=== PATIENT | male | born 1945 | race Two or more races ===

== ENCOUNTER 2018-01-28 02:47 | Emergency (ER) | payer MEDICARE, MEDICAID ==
[~2018-01-28] VITALS: Ht 177.8 cm; Wt 63.5 kg
[~2018-01-28 02:47] MED LIST: ASPIR-LOW81 MG PO; LEXAPRO10 MG PO; PAROXETINE HCL20 MG PO
[2018-01-28 03:00] VITALS: BP 94/56
[2018-01-28] MEDS ORDERED: Bacitracin Oint UD TOPIC ONE (03:45)
[2018-01-28] MEDS ORDERED: Tetanus/Diptheria/Pertussis Vaccine 0.5ml Syr IM ONE (03:45)
[2018-01-28] MEDS ORDERED: KEFLEX500 MG ORAL (03:52)
--- NOTE | 2018-01-28 03:52 | Emergency Room Report ---
History of Present Illness General Chief Complaint: Laceration Source: Patient Present Illness HPI Is a 72-year-old male who is right-hand dominant. He presents with a laceration to his left arm/elbow area. He fell at home while getting up to go to the bathroom. His nightlight was broken. He hit a shelf and sustained a laceration/avulsion to the left elbow area. No loss of consciousness. Bleeding controlled. No other complaint. Denies any pain. Allergies: Coded Allergies: No Known Allergies (Unverified , 12/28/12) Patient History Past Medical History: see triage record, old chart reviewed Past Surgical History: other Pertinent Family History: none Social History: Denies: smoking Immunizations: other Reviewed Nursing Documentation: PMH: Agreed, PSxH: Agreed Nursing Documentation-PMH Past Medical History: No History, Except For Hx Gastrointestinal Problems: Yes - PROSTATE Hx Neurological Problems: No Review of Systems Eye: Denies: eye pain, blurred vision ENT: Denies: ear pain, nose congestion, throat swelling Respiratory: Denies: cough, shortness of breath Cardiovascular: Denies: chest pain, palpitations Gastrointestinal: Denies: abdominal pain, diarrhea, nausea, vomiting Musculoskeletal: Denies: back pain, joint pain Skin: Denies: rash Neurological: Denies: headache, numbness Endocrine: Denies: increased thirst, increased urine Hematologic/Lymphatic: Denies: easy bruising All Other Systems: negative except mentioned in HPI Physical Exam Vital Signs Date Time Temp Pulse Resp B/P (MAP) Pulse Ox O2 Delivery O2 Flow Rate FiO2 01/28/18 02:56 97.1 54 16 94/56 97 Room Air 97.2 vitals normal Sp02 EP Interpretation: reviewed, normal General Appearance: well appearing, no apparent distress, alert Head: normocephalic, atraumatic Eyes: bilateral eye PERRL, bilateral eye EOMI ENT: hearing grossly normal, normal pharynx Neck: full range of motion, supple, no meningismus Respiratory: chest non-tender, lungs clear, normal breath sounds Cardiovascular #1: regular rate, rhythm, no murmur Gastrointestinal: normal bowel sounds, non tender, no mass, no organomegaly, no bruit, non-distended Musculoskeletal: back normal, gait/station normal, normal range of motion, other - left elbow area: 6cm stellate, irregular, stellate lac to left elbow area. no fb, no tendon lac. FROM. NVI Neurologic: alert, oriented x3 Psychiatric: mood/affect normal Skin: warm/dry Procedures Laceration/Wound Repair Laceration/Wound Repair : Consent: Verbal Wound Location: upper extremity Wound's Depth, Shape: irregular, flap, stellate, contused tissue Wound Length (cm): 6 Wound Explored: clean Irrigated w/ Saline (ccs): 1000 Anesthesia: 1% Lidocaine Volume Anesthetic (ccs): 5 Wound Debrided: minimal Wound Repaired With: sutures Suture Size/Type: 4:0, proline Number of Sutures: 14 Patient Tolerated: Well Complications: None Medical Decision Making Diagnostic Impression: Primary Impression: Laceration of left elbow Qualified Codes: S51.012A - Laceration without foreign body of left elbow, initial encounter ER Course Patient with a laceration to the elbow no tendon or foreign body. Last Vital Signs Date Time Temp Pulse Resp B/P (MAP) Pulse Ox O2 Delivery O2 Flow Rate FiO2 01/28/18 03:00 97.2 54 16 94/56 97 Room Air 97.2 Status: improved Disposition: HOME, SELF-CARE Condition: Stable Scripts Cephalexin* (KEFLEX*) 500 Mg Capsule 500 MG ORAL TID, #21 CAP 0 Refills Prov: GIOVANNI ESTES M.D. 01/28/18 Referrals: Charly Sanders MD (PCP) Patient Instructions: Laceration Care, Adult Additional Instructions: Suture out in 7-10 days. Keep wound clean. Return if worse. Followup with your DrVanessa for suture removal. GIOVANNI ESTES M.D. Jan 28, 2018 03:52
[2018-01-28 04:52] VITALS: BP 129/67
[2018-01-28 04:53] VITALS: BP 129/67
== END 2018-01-28 04:53 | disposition home or self-care (01) ==
LOC: EMR 03:22
DX: S51.012A Laceration without foreign body of left elbow, initial encounter (principal); W19.XXXA Unspecified fall, initial encounter; Y92.009 Unspecified place in unspecified non-institutional (private) residence as the place of occurrence of the external cause; Z23 Encounter for immunization
CPT/HCPCS: 90471; 90715; 99284